=== PATIENT | female | born 1990 | race Caucasian/White ===

== ENCOUNTER → 2016-11-29 | Outpatient (CLI) | payer BC | END | disposition home or self-care (01) | LOC: C.PAPS 11:58 | PROVIDERS: ATTEND Obstetrics & Gynecology | DX: Z01.419 Encounter for gynecological examination (general) (routine) without abnormal findings (principal) ==

== ENCOUNTER → 2017-01-01 | Outpatient (CLI) | payer BC ==
--- NOTE | 2017-01-02 07:43 | PAP/PSG TECHNICIAN REPORT ---
[facility] Senior [employer] Consultant Polysomnogram Report Study name: None Report date: 01/02/2017 Study date: 01/01/2017 Referring Physician: Salbador Schwartz M.D. Name: SHAVONNE NEVAREZ Interpreting Physician: Conrad Myers M.D. Date of : 1990 Senior [employer] Consultant: Coco Ruelas, PSGT. Sex: Female Age: 26 StudyType: PSG Weight: 133 lbs Height: 26 years, Height 5' 4" BMI: 22.83 Medications: Sprintec 28, Sumatriptan 100mg, Trokendi xr 100 mg, Minocycline Hci 50 mg, Singulair , Valacyclovir Hci 500 mg. Patient History 26 yr. old female presents tonight for a sleep study followed by a MSLT. Pt. has daytime sleepiness. Parameters Monitored NPSG: E1-M2, E2-M1, Fp1-M2, Fp2-M1, F3-M2, F4-M2, F4-M1, C3-M2, C4-M2, C4-M1, O1-M2, O2-M2, O2-M1, T3-M2, T4-M1, P3-M2, P4-M1, CHIN1, CHIN2, HR, EKG, Legs, PFLOW, SNOR, FLOW, CFLOW, Tidal Volume, THOR, ABDO, SpO2, PLTH, CPRESS, ETCO2 Wave, ETCO2, pH Sleep Architecture Sleep Stages Time at Lights Off 9:25:23 PM STAGES Time (min.) TST (%) Time at Lights On 5:27:53 AM Wake 15.0 -- Total Recording Time (TRT) 483.50 min. N1 2.5 1 Total Sleep Period (TSP) 468.5 min. N2 262.5 56 Total Sleep Time (TST) 467.5min. N3 71.5 15 Awake Time 15.0 min. REM 131.0 28 Wake after Sleep Onset 1.0 min. Sleep Efficiency (SE) 97 % Sleep Onset Latency (NELDA) 14.0 min. Number of Stage 1 Shifts None Awakenings 2 Stage Changes 28 Number of REM periods 5 REM 131.0 28 REM Latency 73.0 min. NREM 336.5 72 Body Position Analysis Supine Right Left Side Prone Vertical Total Sleep Time (min.) 459.9 22.4 0.0 22.39 0.0 0.2 Total Sleep Time (%) 95% 5% 0% 5 0% N/A% Total Sleep Time REM (min.) 131.0 0.0 0.0 None 0.0 0.0 Total Sleep Time NREM (min.) 314.1 22.4 0.0 None 0.0 0.0 Intermittent Wake (min.) 14.8 0.0 0.0 None 0.0 0.2 Total Sleep Period (%) 95% None None None None None Arousals Myoclonus (PLM) * Events Count Index Events Count Index Spontaneous 28 4 Events Awake (PLMW) 0 0.0 Respiratory 0 0.0 Events Asleep w/ Arousal (PLMA) 2 0.3 PLM 2 0 Events Asleep w/o Arousal (PLMS) 70 9.0 Snoring 7 1 Total Asleep 72 9.2 Total 37 5 Total 72 9 Respiratory Analysis * CA OA MA CH H RERA Total Count 0 0 0 0 1 0 1 Index 0.0 0.0 0.0 0 0.1 0 0.1 Mean Duration 0.0 0.0 0.0 0.00 10.3 0.0 10.3 Longest Duration 0.0 0.0 0.0 0.00 0.0 0.0 10.3 Respiratory Event Summary Total Supine ~Supine Right Left Prone REM NREM Apneas Count 0 0 0 0 N/A N/A 0 0 Index 0.0 0 0 0.0 N/A N/A 0 0 Hypopneas (4% Desat) Count 1 1 0 0 N/A N/A 0 1 Index 0.1 0.1 0 0.0 N/A N/A 0.0 0.2 Apneas & All Hypopneas Count 1 1 0 0 N/A N/A 0 1 Index 0.1 0 0 0 N/A N/A 0.0 0.2 Respiratory Events (Signal Manager+All Hyp+RERA) Count 1 1 0 0 N/A N/A 0 1 Index 0.1 0 0 0.0 N/A N/A 0.0 0.2 Respiratory Related Arousal Count 0 1 0 0 N/A N/A 0 0 Index 0.0 0 0 0 N/A N/A 0 0 Snoring Analysis Supine Right Left Prone REM NREM Total Snore duration 2.0 min Snores count 43 3 N/A N/A 12 34 46 Snore mean duration 2.7 Sec Snores index 6 8 N/A N/A 5.5 6.1 5.9 TST with snoring (%) 0.4% Desaturation Event Summary: Minimum %SpO2 Event Count Mean/Min/Max Duration(sec.) Desaturation Index % Time In Bed > 90 11 28.0 / 8.8 / 57.5 1.4 97.9 86 - 90 8 27.1 / 7.8 / 57.5 51.4 1.9 81 - 85 0 N/A 0.0 0.1 76 - 80 0 N/A 0.0 0.1 71 - 75 0 N/A 0.0 0.0 66 - 70 0 N/A 0.0 0.0 61 - 65 0 N/A 0.0 0.0 56 - 60 0 N/A 0.0 0.0 51 - 55 0 N/A 0.0 0.0 < 50 0 N/A 0.0 0.0 Total REM NREM Awake <50% 0.0 min. 0.0 min. 0.0 min. 0.0 min. 51 - 60% 0.0 min. 0.0 min. 0.0 min. 0.0 min. 61 - 70% 0.0 min. 0.0 min. 0.0 min. 0.0 min. 71 - 80% 0.3 min. 0.0 min. 0.3 min. 0.0 min. 81 - 90% 9.8 min. 0.0 min. 9.8 min. 0.0 min. 91 - 100% 471.8 min. 131.0 min. 326.4 min. 14.4 min. Average 95 95 95 96 Minimum SpO2 79 93 79 94 Desaturation Event Index 1.7 0.0 2.5 0.0 # Desat. Events below 89% 9 N/A 9 N/A Time(%) with Saturation below 89% 0.8 0.0 0.8 0.0 Time(min.) with Saturation below 89% 3.9 0.0 3.9 0.0 Time (mins) REM (mins) NREM (mins) % of TST SpO2 Below 90% 11 N/A N11 1.4 SpO2 Below 88% 4 0 0 1 Heart Rate Analysis Min (bpm) Max (bpm) Average (bpm) Awake 58 90 69 NREM 45 109 57 REM 48 91 62 Overall 45 109 58 Supplemental O2 Values Minimum O2 level: None Value Start Time End Time Senior [employer] Consultant Comments PSG Study slept in the right, left, and supine positions. No cardiac arrhythmia or PLM's noted. No bruxism noted. Snoring was noted and scored as a 1 on a scale of 1 through 5. (0=no snoring, 5=snoring loud enough to be heard through a closed door or down the chanel way) Ms. Nevarez awoke to use the restroom zero times during the night. Ms. Nevarez stated, I did sleep as well as I do when I am in my own bed. The final report will be interpreted and signed by a sleep physician. The completed physician report will then be placed in the patient medical record. Pt. did sleep well, she did toss from one side to another often. No respiratory events were seen throughout the night. Pt. will stay for a MSLT 01/02/17, Pt. did state that she will only be able to do 4 naps for she has a procedure scheduled with [facility] at 3 :20 pm. Therapy (cm H2O) 0 TIB (min.) 482.5 TST (min.) 467.5 Sleep Onset (min.) 14.0 REM Onset From Sleep (min.) 73.0 Sleep Efficiency % 97 Wakefulness (%) 3 Wakefulness (min.) 15.0 NREM 1 (%) 1 NREM 1 (min.) 2.5 NREM 2 (%) 56 NREM 2 (min.) 262.5 NREM 3 (%) 15 NREM 3 (min.) 71.5 REM (%) 28 REM (min.) 131.0 # Arousals 37 Arousal Index 5 # Snore 46 Snore Index 5.9 AHI 0.1 AHI Supine 0 AHI Non-Supine 0 NREM AHI 0.2 REM AHI 0.0 RDI 0.1 # Obstructive Apnea 0 # Central Apnea 0 # Mixed Apnea 0 # Hypopneas 1 RERAs 0 Total Respiratory Events 1 Time Below SpO2 89% (min.) 3.9 Mean NREM SpO2 (%) 95 Mean REM SpO2 (%) 95 Mean Sleep SpO2 (%) 95 Min NREM SpO2 (%) 79 Min REM SpO2 (%) 93 Position Supine (min.) 459.9 Position Non-supine (min.) 22.4 LM Index Sleep 9.2 LM Index NREM 9.8 LM Index REM 7.8 Mean Heart Rate (bpm) 58 Min Heart Rate (bpm) 45
[2017-01-02 11:55] LABS: BENZODIAZEPINE, URINE NEG (NEG); COCAINE,URINE NEG (NEG); PHENCYCLIDINE, URINE NEG (NEG)
--- NOTE | 2017-01-02 14:11 | POLYSOMNOGRAPH REPORT ---
[facility] MSLT REPORT Study Date: 01/02/2017 Report Date: 01/02/2017 Name: SHAVONNE NEVAREZ Subject Code: Medicare: [facility] #: [id number] Sex: Female Referring Physician: Salbador Schwartz M.D. Age: 26 Interpreting Physician: Conrad Myers M.D. Weight: 133 lbs Fixed Assets Accountant: Aliza Sebastian [facility]. : 1990 Study Indications: BMI: 22.83 Medications: Sprintec 28, Sumatriptan Succinate 100mg, Trokendi XR 100mg, Flonase Allergy, Minocycline HCL 50mg, Singulair, Valacyclovir HCL 500mg Height: 5' 4" Medicare Date: Patient History Patient has migraine headaches and significant daytime sleepiness. Patient had a sleep study last night and is here today for an MSLT. She is only able to stay for 4 of the naps due to having a procedure scheduled for 3:40pm, that she cannot miss. She was told this may compromise results and that test may need to be repeated. She acknowledged understanding, but still wanted to proceed with testing. She was told all of this last night prior to sleep study. Nap 1 Nap 2 Nap 3 Nap 4 Nap 5 Mean Values Start Time: 7:30:55 AM 9:30:55 AM 11:30:25 AM 1:30:55 PM N/A - End Time: 7:47:55 AM 9:46:55 AM 11:47:55 AM 1:47:25 PM N/A - Time in Bed (min): 17.00 16.00 17.50 16.50 0.00 16.75 Total Sleep Time (min): 15.00 11.00 15.00 12.00 0.00 13.25 Sleep Latency* (min): 2.00 1.00 2.50 1.50 NONE 1.75 REM Latency (min): NONE NONE NONE NONE NONE 20.00 *Note: This report will display a default sleep latency of 20 minutes if the patient fails to sleep during a nap. Recording Fixed Assets Accountant Comments: Patient was unable to stay for 4th nap, she understood that this may cause test to be considered incomplete. Sleep was obtained during all 4 naps. Patient always answered question that she was wide awake prior to each nap. And she did not seem to struggle to stay awake at all in between naps. She fell asleep very quickly during every nap. One stray PVC was noted. No REM was obtained.
--- NOTE | 2017-01-07 16:29 | POLYSOMNOGRAPH REPORT ---
CLINICAL DATA: A 26-year-old female with BMI of 22.[address] Schwartz for evaluation of excessive sleepiness/hypersomnia and possible narcolepsy. On the evening of 01/02/2017, a nocturnal polysomnogram was performed. SLEEP ARCHITECTURE: Total sleep period was 468.5 minutes. Total sleep time was 467.5 minutes divided between 336.5 minutes of non-REM sleep and 131 minutes of REM sleep. Sleep onset latency was 14 minutes. REM latency was 73 minutes. Sleep efficiency was 97%. Awake after sleep onset was 1 minute. Sleep consisted of stage N1 1%, N2 56%, N3 15%, and REM 28%. AROUSAL DATA: Thirty-seven arousals were recorded for an index of 5 per hour. Twenty-eight were due to spontaneous arousals. PLM DATA: No evidence of significant PLMD was seen. There were 72 limb movements during sleep noted for an index of 9.2 per hour with arousal index of 0.3 per hour. RESPIRATORY DATA: There was no evidence of clinically significant sleep apnea/hypopnea noted. AHI was 0.1. There was 1 hypopneic episode, 10.3 seconds in duration. OXIMETRY DATA: No significant hypoxemia was seen. Oxygen isabelle was 79%. Mean saturation was 95%. Time below 88% was 4 minutes. EKG: Heart rates ranged from 45 to 109 beats per minute. No arrhythmias were noted. POWER TRANSFORMER REPAIRER'S COMMENTS: The patient slept in the right, left, and supine positions. Snoring was mild, rated 1 on a scale of 1-5. She slept well, but did toss and turn and move from one side to the other throughout the night. She was scheduled for a multiple sleep latency test the following day. IMPRESSION: No evidence of clinically significant sleep apnea/hypopnea, nocturnal hypoxemia or abnormal limb movements during sleep to explain this patient's symptoms. She did achieve over 7 hours of sleep. RECOMMENDATIONS: The patient will have a multiple sleep latency test performed the following day. [facility]
--- NOTE | 2017-01-07 16:56 | MULTIPLE SLEEP LATENCY TEST ---
CLINICAL DATA: A 26-year-old male with a BMI of 22.[address] Schwartz for evaluation of possible narcolepsy. The patient has excessive daytime sleepiness and hypersomnia. She does have migraine headaches. She did have a sleep study done the evening prior to the multiple sleep latency test which showed 7+ hours of sleep achieved without any significant sleep apnea/hypopnea, nocturnal hypoxemia or leg movement events during sleep. On 01/02/2017 a multiple sleep latency test was performed per the [employer] Protocol. The patient was only able to stay for 4 naps because of a scheduled appointment at 3:40 PM. FINDINGS: Significant foreshortening of sleep latency was seen without sleep onset REM periods. Mean time in bed was 16.75 minutes. Mean total sleep time was 15.25 minutes. Her mean sleep latency was markedly foreshortened at 1.75 minutes. REM was not achieved in any of the 4 naps. For nap #1, time in bed was 17 minutes. Total sleep time was 15 minutes. Sleep latency was 2 minutes. REM was not achieved. For nap #2, time in bed was 16 minutes. Total sleep time was 11 minutes. Sleep latency was 1 minute. REM was not achieved. For nap #3, time in bed was 17.5 minutes. Total sleep time was 15 minutes. Sleep latency was 2.5 minutes. REM was not achieved. For nap #3, time in bed was 16.5 minutes. Total sleep time was 12 minutes. Sleep latency was 1.5 minutes. REM was not achieved. TAX SERVICES INTERN'S COMMENTS: The patient did not struggle to stay awake between naps. She fell asleep very quickly during each nap. IMPRESSION: Markedly abnormal mean sleep latency test with severely foreshortened sleep latency suggesting severe hypersomnia/sleepiness. However, REM was not achieved during any of her naps. Because of this, a definite diagnosis of narcolepsy cannot be made. However, the findings are very suggestive of narcolepsy or severe hypersomnia. RECOMMENDATIONS: The patient should be considered for use of stimulant medication. Clinical correlation is needed. MTDD
== END | disposition home or self-care (01) ==
LOC: C.NEUR 20:00
PROVIDERS: ATTEND Psychiatry & Neurology Neurology
DX: G47.19 Other hypersomnia (principal)

== ENCOUNTER → 2017-01-02 | Outpatient (CLI) | payer BC | END | disposition home or self-care (01) | LOC: C.LAB1850 16:22 | PROVIDERS: ATTEND Obstetrics & Gynecology | DX: N91.5 Oligomenorrhea, unspecified (principal) ==

== ENCOUNTER → 2017-01-02 | Outpatient (CLI) | payer BC | END | disposition home or self-care (01) | LOC: C.PATHSPEC 17:32 | PROVIDERS: ATTEND Obstetrics & Gynecology | DX: D06.9 Carcinoma in situ of cervix, unspecified (principal) ==

== ENCOUNTER → 2017-03-25 | Outpatient (CLI) | payer BC, OTHER ==
[2017-03-25 17:57] LABS: HEPATITIS B AB POS
== END | disposition home or self-care (01) ==
LOC: C.LAB1850 16:12
PROVIDERS: ATTEND Preventive Medicine Occupational Medicine
DX: Z77.21 Contact with and (suspected) exposure to potentially hazardous body fluids (principal)

== ENCOUNTER → 2017-07-23 | Outpatient (CLI) | payer BC | END | disposition home or self-care (01) | LOC: C.PAPS 10:30 | PROVIDERS: ATTEND Obstetrics & Gynecology | DX: R87.612 Low grade squamous intraepithelial lesion on cytologic smear of cervix (LGSIL) (principal) ==

== ENCOUNTER → 2017-07-23 | Outpatient (CLI) | payer BC | END | disposition home or self-care (01) | LOC: C.PATHSPEC 17:41 | PROVIDERS: ATTEND Obstetrics & Gynecology | DX: R87.612 Low grade squamous intraepithelial lesion on cytologic smear of cervix (LGSIL) (principal) ==

== ENCOUNTER → 2017-10-15 | Outpatient (CLI) | payer BC | END | disposition home or self-care (01) | LOC: C.LABSPEC 17:25 | PROVIDERS: ATTEND Obstetrics & Gynecology | DX: Z34.01 Encounter for supervision of normal first pregnancy, first trimester (principal) ==

== ENCOUNTER → 2017-10-17 | Outpatient (CLI) | payer BC ==
[2017-10-17 14:40] LABS: BASO % 0.5 %; BASO ABS # 0.03 K/uL (0-0.2); EOS % 1.6 %; HEMATOCRIT 35.6 % (37-47); HEMOGLOBIN 12.4 g/dL (12.0-16.0); IG# 0.01 K/uL (0.00-0.02); LYMPH % 31.5 %; LYMPH ABS # 2.03 K/uL (1.2-3.4); MEAN CELL VOLUME 91.3 fL (80-100); MEAN CORPUSCULAR HEMOGLOBIN 31.8 pg (25-34); MEAN CORPUSCULAR HGB CONC 34.8 g/dl (32-36); MEAN PLATELET VOLUME 10.4 fL (7.4-10.4); MONO % 5.1 %; MONO ABS # 0.33 K/uL (0.11-0.59); NEUT % 61.1 %; NEUT ABS # 3.95 K/uL (1.4-6.5); PLATELET COUNT 206 K/uL (130-400); RED CELL DISTRIBUTION WIDTH CV 12.9 % (11.5-14.5); WHITE BLOOD COUNT 6.45 K/uL (4.8-10.8)
== END | disposition home or self-care (01) ==
LOC: C.LAB1850 12:48
PROVIDERS: ATTEND Obstetrics & Gynecology
DX: Z34.01 Encounter for supervision of normal first pregnancy, first trimester (principal)

== ENCOUNTER → 2017-11-13 | Outpatient (CLI) | payer BC ==
[~2017-11-13] MED LIST: MODA100T17 PO
== END | disposition home or self-care (01) ==
LOC: C.LAB1850 16:53
PROVIDERS: ATTEND Obstetrics & Gynecology
DX: Z29.13 Encounter for prophylactic Rho(D) immune globulin (principal)

== ENCOUNTER → 2017-11-14 | Day surgery (SDC) | payer BC ==
[2017-11-13 13:27] VITALS: BMI 23.0
[~2017-11-14] VITALS: Ht 162.6 cm; Wt 61.8 kg
[~2017-11-14] MED LIST changes: +ATROPINE SULFATE 0.1 MG/ML 5ML SYR IV PRN; +DEXAMETHASONE SOD INJ 4 MG/ML VIAL ONE; +DOXYCYCLINE HYCLATE 100 MG CAP PO SCH; +EpHEDrine SULFATE INJ 50 MG/ML AMP IV PRN; +FENTANYL CITRATE INJ 50 MCG/1 ML 2 ML VIAL IV PRN; +FENTANYL CITRATE INJ 50 MCG/1 ML 2 ML VIAL ONE; +FLUMAZENIL 0.1 MG/1 ML 10 ML VIAL IV PRN; +GLYCOPYRROLATE INJ 0.2 MG/ML VIAL ONE; +IBUPROFEN 600 MG TAB PO PRN; +KETOROLAC TROMETHAMINE 30 MG/ML VIAL IV. PRN; +LACTATED RINGER'S 1000ML 1,000 ML IV SCH; +LIDOCAINE HCL 2% 2 ML VIAL (20MG/ML) ONE; +MIDAZOLAM HCL 1 MG/ML 2ML VIAL ONE; +NALOXONE HCL 0.4 MG/1 ML VIAL/CARP IV PRN; +ONDANSETRON INJ 2 MG/ML 2 ML VIAL IV PRN; +ONDANSETRON INJ 2 MG/ML 2 ML VIAL ONE; +OXYCODONE/ACETAMINOPHEN 5-325 TAB PO PRN; +PROMETHAZINE HCL INJ 12.5 MG in SODIUM CHLORIDE 0.9% 50ML 50 ML IV PRN; +PROMETHAZINE HCL INJ 25 MG in SODIUM CHLORIDE 0.9% 50ML 50 ML IV PRN; +PROPOFOL IV EMULSION 10 MG/ML 20 ML VIAL IV ONE; +SODIUM CHLORIDE 0.9% 1000ML 1,000 ML IV SCH
[2017-11-14 08:39] VITALS: BP 152/68; PULSE 60; TEMP 37.2; O2SAT 98; Ht 162.6 cm; Wt 61.8 kg
--- NOTE | 2017-11-14 10:42 | History & Physical Bridge Note ---
H&P Re-Evaluation Bridge Note: I have examined the patient, reviewed the History & Physical and in the interval since the performance of the History & Physical I have noted the following changes of clinical significance: No changes noted
--- NOTE | 2017-11-14 10:44 | Discharge Instructions ---
Discharge Instructions Date of Service Nov 14, 2017. Visit Reason for Visit: Missed Discharge Discharge Diagnosis / Problem: Missed Discharge Goals Goal(s): Specific goals Activity Recommendations Activity Limitations: per Instructions/Follow-up section Anesthesia . Post Anesthesia Instructions: If you have had General Anesthesia or IV Sedation: * Do not drive today. * Resume driving when surgeon permits. * Do not make important decisions or sign legal documents today. * Call surgeon for: 1. Temperature elevations greater than 101 degrees F. 2. Uncontrollable pain. 3. Excessive bleeding. 4. Persistent nausea and vomiting. 5. Medication intolerance (nausea, vomiting or rash). * For nausea and vomiting use only clear liquids such as: tea, soda, bouillon until nausea subsides, then gradually increase diet as tolerated. * If you have any concerns or questions, call your surgeon's office. If physician is unavailable and it is an emergency, call 911 or go to the nearest emergency room. . Instructions / Follow-Up Instructions / Follow-Up ACTIVITY RECOMMENDATIONS: * Avoid tampons, douching, hot tubs, pools, and intercourse until bleeding has stopped. * May shower as usual. * No strenuous activity for 24-48 hours. After 24-48 hours, you may do anything you feel like doing (driving and sports are okay). SPECIAL CARE INSTRUCTIONS: Special Diet: * Mild nausea may occur in the immediate post-operative period. * Take clear liquids such as tea, cola or bouillon until all nausea has subsided; you may then resume your normal diet. Special Care: * Light bleeding and vaginal spotting can last from a few days to 3-4 weeks. Call your doctor if bleeding becomes heavier than the heaviest part of your period. * Check your temperature twice a day for one week. If it goes above 100.4 degrees Fahrenheit (38.0 Celsius), notify your doctor. * Call your doctor's office for an appointment for 6 weeks after your surgery. FOLLOW-UP VISIT: Call your doctor's office for an appointment for 6 weeks after your surgery. Diet Recommendations Recommended Home Diet: no limitations Pending Studies Studies pending at discharge: no Medical Emergencies . Who to Call and When: Medical Emergencies: If at any time you feel your situation is an emergency, please call 911 immediately. . Non-Emergent Contact Non-Emergency issues call your: Primary Care Provider . . "Provider Documentation" section prepared by Belinda Vega. .
--- NOTE | 2017-11-14 11:31 | [facility] Post Operative Brief Note ---
Immediate Operative Summary Operative Date Nov 14, 2017. Pre-Operative Diagnosis Missed Post-Operative Diagnosis same Procedure(s) Performed Dilation and Evacuation Surgeon Dr. Belinda Vega Precipitate Washer Surgeon(s) none Estimated Blood Loss 100mL Findings Consistent with Post-Op Diagnosis Specimens A. Products of Conception Drains None Anesthesia Type General Complication(s) none Disposition Accompanied Pt To Recover: no Disposition: Recovery Room / PACU
--- NOTE | 2017-11-14 11:34 | [facility] Operative Report ---
Operative Report Operative Date Nov 14, 2017. Pre-Operative Diagnosis Missed Post-Operative Diagnosis same Procedure(s) Performed Dilation and Evacuation Surgeon Dr. Belinda Vega Threader Surgeon(s) none Estimated Blood Loss 100mL Specimens A. Products of Conception Drains None Anesthesia Type General Complication(s) none Disposition no Recovery Room / PACU Description of Procedure Alejandra was placed on the table in the dorsal lithotomy position with candycane stirrups prepped and draped in standard sterile fashion and a hard timeout was taken prior to proceeding. The bladder was emptied of urine via straight catheterization for 100 cc of clear yellow. Weighted and [place] speculum were introduced to the vagina and the anterior lip of the cervix was grasped with a single toothed tenaculum. Cervix was then serially dilated to a 25 Citizen Of [place]. 8 mm curved rigid curette was then introduced gently to the fundus. The hose was then connected and suction was activated. When suction reach the green zone, a rotational and withdrawing method was used to make several passes with suction retrieving material consistent with products of conception. A brief sharp curettage was then carried out revealing good cry on all 4 lakhani. 1 Additional Pass was made with the suction curette to retrieve any loose clot or debris. Bimanual massage was then performed revealing the uterus had contracted to somewhere between 6-8 cm, and there was no vaginal bleeding at all. All instruments were removed and the patient was transferred in stable condition to the recovery room I attest to the content of the Intraoperative Record and any orders documented therein. Any exceptions are noted below.
--- NOTE | 2017-11-14 12:15 | Anesthesiology Progress Note ---
Anesthesia Post Op Note Date & Time Nov 14, 2017 at 12:15 Vital Signs Pain Intensity: 0 Vital Signs Past 12 Hours Date Time Temp Pulse Resp B/P (MAP) Pulse Ox O2 Delivery O2 Flow Rate FiO2 11/14/17 12:05 74 17 110/66 100 Oxymask 10 11/14/17 11:55 77 21 120/71 100 Oxymask 10 11/14/17 11:45 36.0 47 13 100/54 100 Oxymask 10 11/14/17 08:39 37.2 60 16 152/68 (96) 98 Room Air Notes Mental Status: alert / awake / arousable, participated in evaluation Pt Amnestic to Procedure: Yes Nausea / Vomiting: adequately controlled Pain: adequately controlled Airway Patency, RR, SpO2: stable & adequate BP & HR: stable & adequate Hydration State: stable & adequate Anesthetic Complications: no major complications apparent
[2017-11-14 12:28] VITALS: BP 112/62; PULSE 66; TEMP 37; O2SAT 100
== END | disposition home or self-care (01) ==
LOC: C.ACU 08:17
PROVIDERS: ATTEND Obstetrics & Gynecology
DX: O02.1 Missed abortion (principal); J45.909 Unspecified asthma, uncomplicated; G47.419 Narcolepsy without cataplexy; Z87.891 Personal history of nicotine dependence; Z83.3 Family history of diabetes mellitus; Z80.3 Family history of malignant neoplasm of breast

== ENCOUNTER 2019-02-25 03:08 | Inpatient (IN) ==
--- NOTE | 2019-02-25 03:25 | History & Physical Report ---
Date of Service February 25, 2019 Assessment & Plan (1) 38 weeks gestation of : PROM at 1am. Will admit to L&D, start IV, labs, EFM/toco. Patient wishes to see if contractions excelsior picker with walking the halls. She is agreeable to start pitocin to augment if no labor by 6h after PROM. Is planning for no epidural at this time, but is open to the idea if pain becomes unbearable. History of Present Illness Chief Complaint: Leaking fluid - r/o ROM Primary Care Provider: Kvng Mason MD 28yo @ 38 10/15 presents with complaint of losing mucus plug and vaginal discharge of clear fluid - is not sure if she has had rupture of membranes. No vaginal bleeding. Contractions about every 10 minutes. + movement. complicated by h/o LEEP 2010 with LSIL pap. Migraines. History of miscarriage. Asthma. Smoker, does not want spouse to know. Allergies Allergy/AdvReac Type Severity Reaction Status Date / Time No Known Allergies Allergy Unknown Unverified 11/14/17 08:37 Home Medications Home Medications Medication Instructions Recorded Confirmed Type Modafinil (Provigil) 100 mg PO afternoon #0 tab 11/13/17 History Review of Systems All systems reviewed & are unremarkable except as noted in HPI & below Physical Exam Physical Exam: Gen: AAOx3 NAD CV: RRR L: CTAB Abd: soft, gravid, NTTP Ext: no edema Sterile spec exam: +pooling, visible hair, +nitrizine SVE: 2-3/100/-1 FHT Cat 1 [place] irregular
[2019-02-25] MEDS ORDERED: OXYTOCIN 30 UNITS/500 ML BAG IV PRN ×3 (03:36→12:01)
[2019-02-25] MEDS ORDERED: ONDANSETRON INJ 2 MG/ML 2 ML VIAL IV PRN ×2 (03:48→05:31)
[2019-02-25] MEDS ORDERED: ONDANSETRON INJ 2 MG/ML 2 ML VIAL ONE (03:52)
[2019-02-25 04:03] LABS: Hematocrit (blood only) 36.2 % (37-47); Hemoglobin 12.2 g/dL (12.0-16.0); Mean Corpuscular Volume 90.5 fL (80-100); Mean Platelet Volume 10.1 fL (7.4-10.4); Platelet Count 169 K/uL (130-400); RDW Coefficient of Variation 13.6 % (11.5-14.5); White Blood Count 12.12 K/uL (4.8-10.8)
[2019-02-25 04:17] LABS: Mean Corpuscular Hgb Conc 33.7 g/dL (32-36)
[2019-02-25] MEDS ORDERED: BUPIVACAINE 0.25% 30 ML VIAL ONE (05:09)
[2019-02-25] MEDS ORDERED: ePHEDrine sulfate 50 MG/ML AMP ONE (05:09)
[2019-02-25] MEDS ORDERED: fentaNYL 2MCG/ML ROPIV 1.25MG/ML 100 ML BAG EPI ONE (05:09)
[2019-02-25] MEDS ORDERED: fentaNYL citrate 100 MCG/2 ML VIAL ONE (05:09)
[2019-02-25] MEDS: LACTATED RINGER'S 1,000 ML IV PRN ×2 (05:14→06:14)
[2019-02-25] MEDS ORDERED: NALBUPHINE HCL INJ 10 MG/ML AMP IV PRN (05:31)
[2019-02-25] MEDS ORDERED: ePHEDrine sulfate 50 MG/ML AMP IV PRN (05:31)
[2019-02-25] MEDS ORDERED: NALOXONE HCL 1 MG in SODIUM CHLORIDE 0.9% 1000ML 1,000 ML IV PRN (05:31)
[2019-02-25] MEDS ORDERED: NALOXONE HCL 0.4 MG/1 ML VIAL/CARP IV PRN (05:31)
[2019-02-25] MEDS ORDERED: DiphenhydrAMINE HCL 50 MG/ML VIAL IV PRN (05:31)
[2019-02-25] MEDS ORDERED: fentaNYL 2MCG/ML ROPIV 1.25MG/ML 100 ML BAG EPI PRN (05:31)
--- NOTE | 2019-02-25 05:37 | Anesthesiology Consultation ---
Date of Service February 25, 2019 Assessment & Plan Chart Review Chart Review: Patient NOT seen in Pre Admission Testing and Acceptable Risk for Labor Epidural Consults Requested none ASA ASA2 Proposed Anesthesia Anesthesia Type: Labor Epidural and CSE Risk / Benefits Reviewed With: PT / POA / Parent / Guardian, Accepts Plan and Informed Consent Obtained History Height/Weight Height: 5 ft 5 in Weight: 88.451 kg Allergies Allergy/AdvReac Type Severity Reaction Status Date / Time No Known Allergies Allergy Unknown Unverified 11/14/17 08:37 Medications Home Medications Medication Instructions Recorded Confirmed Last Taken PNV cmb#95-ferrous fumarate-FA 1 tab PO DAILY 02/25/19 02/25/19 02/25/19 [] ferrous sulfate [iron] 325 mg PO DAILY 02/25/19 02/25/19 02/25/19 ranitidine HCl [Zantac] 150 mg PO DAILY 02/25/19 02/25/19 02/25/19 Active Medications Generic Name Dose Route Start Last Admin Trade Name Freq PRN Reason Stop Dose Admin Lactated Ringer's 1,000 mls @ 125 mls/hr 02/25/19 03:36 02/25/19 05:14 Lr IV 02/27/19 03:35 999 mls/hr .Q8H PRN Administration L&D Protocol Protocol NPO Date Last Intake of Fluids: 02/25/19 Time Last Intake of Fluids: 04:30 Date Last Intake of Solids: 02/24/19 Time Last Intake of Solids: 18:30 Past Medical History Medical History Anemia History of migraine [place] teeth removed Exercise / Class Metabolic Activity II 4-5 Yardwork/Stairs/Walk up hill Past Surgical History Surgical History H/O LEEP H/O dilation and curettage Past Anesthesia History No Hx of Anesthesia Complications and No Family Hx of Anesthesia Complications History of PONV No Hx of PONV and No Hx of Motion Sickness Social History Smoking Status: Former smoker Hx Alcohol Use: No Hx Substance Use: No Review of Systems no chest pain or sob Physical Exam Vital Signs Last Vital Signs Temp 36.7 C 02/25/19 03:37 Pulse 82 02/25/19 05:34 Resp 18 02/25/19 03:37 BP 120/79 02/25/19 03:37 Pulse Ox 96 02/25/19 05:34 ENMT Mouth: no TMJ abnormality Thyromental Distance: > or= 3.5 Finger Breadths Mallampati Class: II Neck normal visual inspection Respiratory normal respiratory effort Auscultation: lungs clear to auscultation bilaterally Cardiovascular Rate/Rhythm: regular rate and regular rhythm Musculoskeletal Spine: normal cervical ROM Neurologic moves all extremities Psychiatric Orientation: alert and oriented x 3 Testing Laboratory Results 02/25/19 03:54
--- NOTE | 2019-02-25 07:23 | Obstetrical Progress Note ---
Date of Service February 25, 2019 Subjective Comfortable with epidural. FHT Cat 1 [place] rare SVE 4-5/100/0 Patient amenable to starting pitocin. Results & Data Vital Signs (Past 12 Hours) Vital Signs Temp Pulse Resp BP Pulse Ox 02/25/19 07:19 76 100 02/25/19 07:14 54 L 98 02/25/19 07:09 55 L 99 02/25/19 07:06 57 L 102/57 L 02/25/19 07:04 57 L 98 02/25/19 07:00 36.5 C 18 02/25/19 06:59 53 L 98 02/25/19 06:54 52 L 100 02/25/19 06:51 56 L 111/60 02/25/19 06:49 52 L 99 02/25/19 06:46 56 L 106/61 02/25/19 06:44 54 L 99 02/25/19 06:41 61 110/62 02/25/19 06:39 56 L 99 02/25/19 06:36 50 L 108/59 L 02/25/19 06:34 52 L 99 02/25/19 06:31 49 L 103/57 L 02/25/19 06:29 53 L 100 02/25/19 06:26 49 L 102/55 L 02/25/19 06:24 52 L 100 02/25/19 06:22 52 L 101/58 L 02/25/19 06:19 54 L 99 02/25/19 06:16 52 L 96/55 L 02/25/19 06:14 60 97 02/25/19 06:11 61 18 105/58 L 02/25/19 06:09 58 L 98 02/25/19 06:06 64 107/57 L 02/25/19 06:04 64 98 02/25/19 05:59 65 106/62 99 02/25/19 05:57 72 110/67 02/25/19 05:55 61 18 111/69 02/25/19 05:54 61 116/73 99 02/25/19 05:52 63 120/74 02/25/19 05:49 70 112/74 100 02/25/19 05:44 59 L 99 02/25/19 05:39 67 100 02/25/19 05:34 82 96 07/18/19 05:29 55 L 100 02/25/19 05:24 71 100 02/25/19 05:19 59 L 99 02/25/19 05:06 36.7 C 02/25/19 03:37 36.7 C 61 18 120/79 02/25/19 03:22 61 120/79
[2019-02-25] MEDS ORDERED: SUPERCREAM 0.870% 15 GM JAR EXT PRN (12:01)
[2019-02-25] MEDS ORDERED: BENZOCAINE 20% AER SPR 82.5 GM CAN EXT PRN (12:01)
[2019-02-25] MEDS ORDERED: ACETAMINOPHEN 325 MG TAB PO PRN (12:01)
[2019-02-25] MEDS ORDERED: DIPHTHERIA/TETANUS/PERTUSSIS 0.5 ML SYR/VIAL IM ONE (12:01)
[2019-02-25] MEDS ORDERED: HYDROCORTISONE ACETATE 25 MG SUPP PR PRN (12:01)
--- NOTE | 2019-02-25 12:25 | Delivery Summary ---
DATE OF OPERATION: 02/25/2019 PROCEDURES: 1. Normal spontaneous vaginal delivery. 2. Left vaginal sidewall laceration with left labial laceration. SURGEON: Rudolph Sandhu MD PREOPERATIVE DIAGNOSES: 1. Single intrauterine at 38 weeks gestational age. 2. Premature rupture of membranes. 3. History of LEEP. POSTOPERATIVE DIAGNOSES: 1. Single intrauterine at 38 weeks gestational age. 2. Premature rupture of membranes. 3. History of LEEP. 4. Status post delivery. ESTIMATED BLOOD LOSS: 300 mL. DRAINS: None. FLUIDS: Continuous lactated ringer. URINE OUTPUT: Not measured. COMPLICATIONS: None. FINDINGS: Viable female with weight pending, Apgars of 7 and 9 at 1 and 5 minutes respectively. INDICATIONS: Alejandra is a 28-year-old G2, P0-0-1-0, admitted at 38 weeks 3 days gestational age with premature rupture of membranes. At presentation, she was found to be 2 cm dilated, 100% effaced, -1 station. The patient was see irregularly and was started on oxytocin per regular protocol. DESCRIPTION OF PROCEDURE: The patient then progressed in labor and received an epidural for anesthesia. The patient progressed to 10 cm dilated, 100% effaced, -3 station, pushed over intact perineum with epidural anesthesia and delivered a viable female , weight and Apgars as noted above. The head of the delivered in LOYD position and rest into to left transverse. No nuchal cord was noted. There was noted to be the posterior arm and hand were delivering ahead of the shoulder and the posterior arm was gently delivered posteriorly. The remainder of the body then followed and delivered and the was delivered to the maternal abdomen. The was noted to be vigorous at periods of time; however, after approximately 40 seconds, a decision was made to clamp and cut the cord and the cord was double clamped and cut. The was then noted to be vigorous and remained on the maternal abdomen for a period of time before being taken to the warmer for evaluation. Cord blood was then obtained. Attention was then turned to delivery of the placenta which was delivered intact, 3-vessel cord, gentle cord traction. On inspection of the perineum, vagina and cervix, there was noted to be a left vaginal sidewall laceration that extended to the left labia. These were repaired with 3-0 Vicryl in continuous stitch for the vaginal laceration in an interrupted stitch for the labial laceration. Needle, sponge and instrument counts were correct at the completion of the case. Both mother and were stable in the immediate post-delivery. I attest to the content of the Intraoperative Record and any orders documented therein. Any exception s are noted below.
--- NOTE | 2019-02-25 13:27 | Anesthesia Procedure Note ---
Date of Service February 25, 2019 Anesthesia Post Epidural Note Vital Signs Vital Signs: Temp Pulse Resp BP Pulse Ox 36.5 C 86 18 125/73 100 02/25/19 12:05 02/25/19 13:22 02/25/19 12:50 02/25/19 13:22 02/25/19 11:29 Pain Intensity Abdomen: Pain Intensity: 0 Notes Mental Status: alert / awake / arousable Nausea / Vomiting: adequately controlled Pain: adequately controlled Airway Patency, RR, SpO2: stable & adequate BP & HR: stable & adequate Hydration State: stable & adequate Neuraxial Anesthesia: was administered and sensory block is resolving Anesthetic Complications: no major complications apparent Epidural: Removed without complications and With tip intact
[2019-02-25] MEDS: DOCUSATE SODIUM 100 MG CAP PO SCH (20:12)
[2019-02-25] MEDS: IBUPROFEN 600 MG TAB PO PRN (23:19)
--- NOTE | 2019-02-26 05:38 | Obstetrical Progress Note ---
Date of Service <Lavell Salcedo MD - Last Filed: 02/26/19 07:11> February 26, 2019 Assessment & Plan <Lavell Salcedo MD - Last Filed: 02/26/19 07:11> Day #:: 1 ([28 y/o s/p vaginal delivery @ 38+3] - Blood Type A+ - Feels well today. Eating well, voiding well, ambulating well. - Pain well controlled. - Routine post care - After discharge will have [address] Sandhu.) Subjective <Lavell Salcedo MD - Last Filed: 02/26/19 07:11> Ambulation: ambulating normally Voiding: no voiding problems Passing Gas:: Yes Diet Tolerance:: regular diet Lochia:: Moderate Feeding Type:: breast feeding Current Pain Level(1-10): 2 Physical Exam <Lavell Salcedo MD - Last Filed: 02/26/19 07:11> OB PE General: Alert, oriented. No acute distress. Cardiac: Regular rate and rhythm, no murmurs/rubs/gallops. Respiratory: Clear to auscultation anterior and posteriorly, no wheezes/rales/rhonchi. No increased work of breathing. Symmetrical chest rise. No respiratory distress. Abdomen: Soft, nontender, nondistended. Bowel sounds present. Uterus: Uterine fundus firm, palpable at the umbilicus. Lower Extremities: No lower extremity edema or swelling. No deep calf pain. Jermaine's negative bilaterally. OB ROS Denies fever, chills, sweats Denies shortness of breath, difficulty breathing, chest pain, palpitations, chest pressure. Denies breast pain. Denies dysuria. Denies headache. Results & Data <Lavell Salcedo MD - Last Filed: 02/26/19 07:11> Vital Signs (Past 12 Hours) Vital Signs Temp Pulse Resp BP Pulse Ox 02/26/19 03:00 36.5 C 54 L 16 102/62 02/25/19 23:20 36.7 C 70 18 108/69 02/25/19 20:15 36.7 C 73 18 103/65 98 <Rudolph Sandhu MD - Last Filed: 03/02/19 15:17> Co-Signing Physician Notes Patient seen and evaluated and agree with the above findings and plan.
[2019-02-26 07:18] LABS: Hematocrit (blood only) 34.9 % (37-47); Hemoglobin 11.5 g/dL (12.0-16.0); Mean Corpuscular Volume 91.1 fL (80-100); Mean Platelet Volume 10.5 fL (7.4-10.4); Platelet Count 185 K/uL (130-400); RDW Coefficient of Variation 13.8 % (11.5-14.5); RDW Standard Deviation 45.9 fL (36.4-46.3); Red Blood Count 3.83 M/uL (4.2-5.4); White Blood Count 14.79 K/uL (4.8-10.8)
[2019-02-26] MEDS: IBUPROFEN 600 MG TAB PO PRN ×2 (09:02→20:22)
[2019-02-26] MEDS: DOCUSATE SODIUM 100 MG CAP PO SCH ×2 (09:02→20:22)
[2019-02-26] MEDS: PRENATAL VITAMIN 1 TAB PO SCH (09:02)
[2019-02-26] MEDS ORDERED: BISACODYL 5 MG TABEC PO SCH (20:00)
--- NOTE | 2019-02-27 05:07 | Obstetrical Progress Note ---
Date of Service <Lavell Salcedo MD - Last Filed: 02/27/19 07:27> February 27, 2019 Assessment & Plan <Lavell Salcedo MD - Last Filed: 02/27/19 07:27> Day #:: 2 ([28 y/o s/p vaginal delivery @ 38+3] - GBS neg., Blood Type A+ - Feels well today. Eating well, voiding well, ambulating well. - Pain well controlled. - Routine post care - After discharge will have [address] Sandhu.) <Katherine Rodriguez MD, FACOG - Last Filed: 02/27/19 08:04> (1) 38 weeks gestation of : Day #:: 2 Subjective <Lavell Salcedo MD - Last Filed: 02/27/19 07:27> Ambulation: ambulating normally Voiding: no voiding problems Passing Gas:: Yes Diet Tolerance:: regular diet Lochia:: Moderate (less than a heavy period) Feeding Type:: breast feeding Current Pain Level(1-10): 1 Physical Exam <Lavell Salcedo MD - Last Filed: 02/27/19 07:27> OB PE General: Alert, oriented. No acute distress. Cardiac: Regular rate and rhythm, no murmurs/rubs/gallops. Respiratory: Clear to auscultation anterior and posteriorly, no wheezes/rales/rhonchi. No increased work of breathing. Symmetrical chest rise. No respiratory distress. Abdomen: Soft, nontender, nondistended. Bowel sounds present. Uterus: Uterine fundus firm, at the umbilicus. Lower Extremities: No lower extremity edema or swelling. No deep calf pain. Jermaine's negative bilaterally. OB ROS Denies fever, chills, sweats Denies shortness of breath, difficulty breathing, chest pain, palpitations, chest pressure. Denies breast pain. Denies dysuria. Denies headache. Results & Data <Lavell Salcedo MD - Last Filed: 02/27/19 07:27> Vital Signs (Past 12 Hours) Vital Signs Temp Pulse Resp BP Pulse Ox 02/26/19 23:25 36.8 C 72 16 112/69 98 02/26/19 20:10 36.9 C 72 16 119/72 98 <Katherine Rodriguez MD, FACOG - Last Filed: 02/27/19 08:04> Co-Signing Physician Notes Resident Physician Supervision Note: I interviewed and examined the patient. Discussed with Dr. Salcedo and agree with findings and plan as documented in the note. Any exceptions or clarifications are listed here: Doing well. Plan d/c Documented By: Katherine Rodriguez MD, FACOG
[2019-02-27] MEDS: IBUPROFEN 600 MG TAB PO PRN ×2 (06:08→12:17)
[2019-02-27 06:49] LABS: Hematocrit (blood only) 33.9 % (37-47); Hemoglobin 11.3 g/dL (12.0-16.0)
[2019-02-27] MEDS: PRENATAL VITAMIN 1 TAB PO SCH (08:32)
[2019-02-27] MEDS: DOCUSATE SODIUM 100 MG CAP PO SCH (08:32)
[2019-02-27] MEDS ORDERED: BISACODYL 10 MG SUPP PR PRN (09:00)
== END 2019-02-27 14:25 | disposition home or self-care (01) | DRG 806 ==
LOC: OPB 03:08 → 4S1 03:12 → 4S2 13:54

== ENCOUNTER 2024-12-05 14:35 | Inpatient (IN) ==
[2024-12-05] MEDS ORDERED: LIDOCAINE 1% LOCAL 20 ML VIAL INFIL PRN (15:35)
[2024-12-05] MEDS ORDERED: LIDOCAINE 2% MPF LOCAL 5 ML VIAL EPI PRN (15:36)
[2024-12-05] MEDS ORDERED: NALBUPHINE HCL INJ 10 MG/ML AMP IV PRN (15:36)
[2024-12-05] MEDS ORDERED: SODIUM CHLORIDE 0.9% PF INJ 10 ML VIAL EPI PRN (15:36)
[2024-12-05] MEDS ORDERED: fentaNYL citrate PF 100 MCG/2 ML VIAL EPI PRN (15:36)
[2024-12-05] MEDS ORDERED: BUPIVACAINE 0.25% PF 30 ML VIAL EPI PRN (15:36)
[2024-12-05] MEDS ORDERED: ePHEDrine sulfate 50 MG/ML AMP IV PRN (15:36)
[2024-12-05] MEDS ORDERED: diphenhydrAMINE 50 MG/ML VIAL IV PRN (15:36)
[2024-12-05] MEDS ORDERED: NALOXONE HCL 1 MG in SODIUM CHLORIDE 0.9% 1,000 ML IV PRN (15:36)
[2024-12-05] MEDS ORDERED: NALOXONE HCL 0.4 MG/1 ML VIAL/CARP IV PRN (15:36)
[2024-12-05] MEDS ORDERED: fentANYL 2 MCG/ML BUPIVacaine 0.125%-NSS 100ML BAG EPI PRN (15:36)
[2024-12-05] MEDS ORDERED: ROPIVACAINE 0.5% PF 5 MG/ML 20 ML VIAL EPI PRN (15:36)
--- NOTE | 2024-12-05 15:37 | History & Physical Report ---
Date of Service December 05, 2024 Assessment & Plan (1) Elderly multigravida: Plan: Admit to L&D. EFM/toco. Labs. IV. She desires epidural. History of Present Illness Chief Complaint: labor Primary Care Provider: Kvng Mason MD 34yo @ 40 0/7, AMA, Rh neg, ovarian cyst - presented to L&D with contractions and clear rupture of membranes at 2pm today. + movement. Allergies Allergy/AdvReac Type Severity Reaction Status Date / Time No Known Allergies Allergy Unknown Verified 12/02/24 12:38 Home Medications Medication Instructions Recorded Confirmed Type valacyclovir 1 gram tablet 2,000 mg PO Q12H PRN per provider 04/09/24 12/05/24 History (Valtrex) aspirin 81 mg tablet,delayed 81 mg PO DAILY 12/05/24 12/05/24 History release ferrous sulfate 325 mg (65 mg 325 mg PO DAILY 12/05/24 12/05/24 History iron) tablet (Iron (ferrous sulfate)) omeprazole 20 mg capsule,delayed 20 mg PO DAILY 12/05/24 12/05/24 History release vits no.124-ferrous fum 1 tab PO DAILY 12/05/24 12/05/24 History 27 mg iron-folic acid 800 mcg tablet ( Vitamin) Patient History Medical History History of HPV infection LGSIL on Pap smear of cervix Common migraine without intractability Narcolepsy History of migraine Surgical History S/P surgical removal of pilonidal cyst S/P ovarian cystectomy History of colposcopy H/O LEEP H/O dilation and curettage [place] teeth removed Family History Mother Depression Anxiety History of thyroid disorder Hypertension Aunt Cancer Breast cancer Father Hypercholesteremia Diabetes Hypertension Aunt Thyroid disease Neoplasm of cervix Grandfather Diabetes Grandmother Kidney stone Unknown Tuberculosis H/O ovarian cystectomy History of hysterectomy Depression Other No pertinent family history Denies family history of Ovarian cancer Prostate cancer Myocardial infarction Colorectal cancer Social History (Updated 04/23/24 @ 15:17 by Little [place]) Smoking Status: Former smoker Second Hand Exposure: No; Do You Dip or Chew Tobacco: No; Hx Alcohol Use: Yes Hx Substance Use: No Preferred Language: [place] Communication Ability: Effective Visual Impairment: No Limitations Lab Nurse Required: No Beliefs That Will Affect Care: None marital status: marital status details: JR Ambriz [phone]) [phone] Current Living Situation: Family Current Living Situation Comment: Lives at home with and daughter. 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 No s/s chorio or abruption. Skin: no rashes, warm and dry Psychiatric: A+Ox3, euthymic affect Results & Data Vital Signs (Past 12 Hours) Vital Signs Temp Pulse Resp BP 12/05/24 15:02 76 120/75 12/05/24 14:54 36.7 C 76 18 120/75 Coding Level of Care Code None Diagnoses Elderly multigravida O09.529
--- NOTE | 2024-12-05 15:37 | Anesthesiology Consultation ---
Date of Service December 05, 2024 Assessment & Plan (1) Encounter for pre-operative examination: Chart Review Chart Review: Patient NOT seen in Pre Admission Testing and Acceptable Risk for Labor Epidural Consults Requested none History Height/Weight Height: 5 ft 4 in Weight: 97.069 kg Allergies Allergy/AdvReac Type Severity Reaction Status Date / Time No Known Allergies Allergy Unknown Verified 12/02/24 12:38 Medications Home Medications Medication Instructions Recorded Confirmed Last Taken valacyclovir 1 gram tablet 2,000 mg PO Q12H PRN per provider 04/09/24 12/05/24 Unknown (Valtrex) aspirin 81 mg tablet,delayed 81 mg PO DAILY 12/05/24 12/05/24 12/04/24 release ferrous sulfate 325 mg (65 mg 325 mg PO DAILY 12/05/24 12/05/24 12/03/24 iron) tablet (Iron (ferrous sulfate)) omeprazole 20 mg capsule,delayed 20 mg PO DAILY 12/05/24 12/05/24 12/04/24 release vits no.124-ferrous fum 1 tab PO DAILY 12/05/24 12/05/24 12/04/24 27 mg iron-folic acid 800 mcg tablet ( Vitamin) Past Medical History Medical History History of HPV infection LGSIL on Pap smear of cervix Common migraine without intractability Narcolepsy History of migraine Past Family History Family History Mother Depression Anxiety History of thyroid disorder Hypertension Aunt Cancer Breast cancer Father Hypercholesteremia Diabetes Hypertension Aunt Thyroid disease Neoplasm of cervix Grandfather Diabetes Grandmother Kidney stone Unknown Tuberculosis H/O ovarian cystectomy History of hysterectomy Depression Other No pertinent family history Denies family history of Ovarian cancer Prostate cancer Myocardial infarction Colorectal cancer Past Surgical History Surgical History S/P surgical removal of pilonidal cyst S/P ovarian cystectomy L side, serous cystadenoma and dermoid History of colposcopy H/O LEEP H/O dilation and curettage [place] teeth removed Social History Smoking Status: Former smoker Do You Dip or Chew Tobacco: No Hx Alcohol Use: Yes alcohol intake frequency: holidays/special occasions only Hx Substance Use: No substance use type: does not use Physical Exam Vital Signs Last Vital Signs Temp 98.1 F 12/05/24 14:54 Pulse 76 12/05/24 15:02 Resp 18 12/05/24 14:54 BP 120/75 12/05/24 15:02
[2024-12-05] MEDS: LACTATED RINGER'S 1,000 ML IV PRN (15:50)
[2024-12-05 16:00] LABS: Hematocrit (blood only) 35.7 % (37.0-47.0); Hemoglobin 11.7 g/dl (12.0-16.0); Mean Corpuscular Hemoglobin 29.4 pg (25.0-34.0); Mean Corpuscular Hgb Conc 32.8 g/dL (32.0-36.0); Mean Corpuscular Volume 89.7 fL (80.0-100.0); Mean Platelet Volume 10.7 fL (9.4-12.4); Platelet Count 179 K/uL (130-400); RDW Coefficient of Variation 13.6 % (11.5-14.5); RDW Standard Deviation 44.5 fL (36.4-46.3); Red Blood Count 3.98 M/uL (4.20-5.40); White Blood Count 9.57 K/ul (4.8-10.8)
[2024-12-05] MEDS: fentANYL 2 MCG/ML BUPIVacaine 0.125%-NSS 100ML BAG ONE (16:27)
[2024-12-05] MEDS: BUPIVACAINE 0.25% PF 30 ML VIAL ONE (16:27)
[2024-12-05] MEDS: fentaNYL citrate PF 100 MCG/2 ML VIAL ONE (16:28)
[2024-12-05] MEDS: LIDOCAINE 2%/EPINEPHRINE 1:200,000 20 ML PF ONE (16:28)
[2024-12-05] MEDS: LIDOCAINE 2%/EPINEPHRINE 1:200,000 20 ML PF EPI STA (16:37)
[2024-12-05] MEDS: ePHEDrine sulfate 50 MG/ML AMP ONE (16:37)
[2024-12-05] MEDS: SODIUM CHLORIDE 0.9% PF INJ 10 ML VIAL EPI STA (16:37)
[2024-12-05] MEDS: BUPIVACAINE 0.25% PF 30 ML VIAL EPI STA (16:37)
[2024-12-05] MEDS: fentaNYL citrate PF 100 MCG/2 ML VIAL EPI STA (16:37)
[2024-12-05] MEDS: SODIUM CHLORIDE 0.9% PF INJ 10 ML VIAL ONE (16:38)
[2024-12-05] MEDS: OXYTOCIN 30 UNITS/NSS 30 UNITS/500 ML BAG IV PRN (17:45)
[2024-12-05] MEDS: OXYTOCIN 10 UNITS/ML 10ML VIAL IM ONE (17:50)
--- NOTE | 2024-12-05 18:04 | Delivery Summary ---
Vaginal Delivery Summary Date of Service December 05, 2024 Vaginal Delivery Summary Vaginal Delivery Summary: Pre-delivery diagnoses: 34yo @ 40 0/7, spontaneous labor, Rh negative, AMA, ovarian cyst Post-delivery diagnoses: same Procedure: spontaneous vaginal delivery Surgeon: Nathalie Odonnell DO Complications: none Findings: Viable female . Apgars: 8/9 . Weight pending, please see nursery records Estimated QBL: 161cc Description of delivery: The patient progressed to complete with epidural anesthesia. She then began to push. She spontaneously vaginally delivered a viable from the cephalic presentation. The head delivered in GERARDO position. The anterior shoulder delivered, followed by the posterior shoulder, followed by the body. Nuchal x 2, too tight to reduce, therefore delivered through. The baby was placed on mother's abdomen and a spontaneous cry was heard. Delayed cord clamping was employed, and the cord was doubly clamped and cut. Cord blood was obtained. The placenta was delivered spontaneously intact with a 3-vessel cord. The uterus and vagina were swept of clots and debris. IV pitocin was attempted - however IV became dislodged during delivery, therefore IM pitocin was given. The uterus became firm with pitocin and massage. The cervix, vagina, and perineum were inspected and a small laceration in left vagina was noted, there was active bleeding from this - therefore it was sutured with 3-0 vicryl [id number] x 2, and this achieved hemostasis. Excellent hemostasis was observed. The mother and baby are recovering in stable and good condition in the room. Sponge, needle and instrument counts were correct x 2. Nathalie Odonnell DO [facility] Vaginal Delivery Charge Vaginal Delivery Codes: 55687 global code for the antepartum, delivery, and post- Delivery Type Details:
[2024-12-05] MEDS ORDERED: OXYTOCIN 30 UNITS/NSS 30 UNITS/500 ML BAG IV PRN (18:12)
[2024-12-05] MEDS ORDERED: HYDROCORTISONE ACETATE 25 MG SUPP PR PRN (18:12)
[2024-12-05] MEDS ORDERED: oxyCODONE/ACETAMINOPHEN 5mg/325mg TAB PO PRN (18:12)
[2024-12-05] MEDS ORDERED: ACETAMINOPHEN 325 MG TAB PO PRN (18:12)
[2024-12-05] MEDS ORDERED: bisacodyL 10 MG SUPP PR PRN (18:12)
[2024-12-05] MEDS: DIPHTHER/TETAN/PERTUS Vaccine (Tdap, Adol/Adult) 0.5mL IM ONE (19:05)
[2024-12-05] MEDS: BENZOCAINE 20% SPRY 85 APPLN/85 GM CAN EXT PRN (20:02)
[2024-12-05 20:46] VITALS: RESP 16
[2024-12-05] MEDS: DOCUSATE SODIUM 100 MG CAP PO SCH (20:50)
[2024-12-06] MEDS ORDERED: OXYTOCIN 10 UNITS/ML VIAL ONE (02:37)
[2024-12-06] MEDS: IBUPROFEN 600 MG TAB PO PRN (05:04)
[2024-12-06 06:28] LABS: Hematocrit (blood only) 26.5 % (37.0-47.0); Hemoglobin 8.8 g/dl (12.0-16.0)
--- NOTE | 2024-12-06 07:16 | Anesthesia Procedure Note ---
Date of Service December 06, 2024 Anesthesia Post Epidural Note Vital Signs Vital Signs: Temp Pulse Resp BP Pulse Ox O2 Del Method 36.8 C 83 16 104/67 99 Room Air 12/06/24 04:00 12/06/24 04:00 12/06/24 04:00 12/06/24 04:00 12/05/24 18:04 12/06/24 04:00 Pain Intensity Lower Medial Abdomen: Pain Intensity: 0 Notes Mental Status: alert / awake / arousable and participated in evaluation Nausea / Vomiting: adequately controlled Pain: adequately controlled Airway Patency, RR, SpO2: stable & adequate BP & HR: stable & adequate Hydration State: stable & adequate Neuraxial Anesthesia: was administered and sensory block is resolving Anesthetic Complications: no major complications apparent Epidural: Removed without complications and With tip intact
--- NOTE | 2024-12-06 07:52 | Obstetrical Progress Note ---
Date of Service December 06, 2024 Assessment & Plan (1) Elderly multigravida: PPD#1 doing well, desires DC home. Reviewed instructions, followup 6wpp. Subjective Ambulation: ambulating normally Voiding: no voiding problems Diet Tolerance:: regular diet Lochia:: Moderate Review of Systems All systems reviewed & are unremarkable except as noted in HPI & below Physical Exam Constitutional WD/WN, vitals as above no acute distress Respiratory normal respiratory effort Cardiovascular Rate/Rhythm: regular rate and regular rhythm Gastrointestinal (Abdomen) Inspection/Auscultation: abdomen normal to inspection; abdomen not distended Percussion/Palpation: abdomen soft Genitourinary OB Exam Abdomen: + fundal height Fundus: + firm; not tender Results & Data Vital Signs (Past 12 Hours) Vital Signs Temp Pulse Pulse Resp BP BP O2 Del Method 12/06/24 04:00 36.8 C 83 16 104/67 Room Air 12/05/24 23:56 36.9 C 16 109/70 Room Air 12/05/24 20:43 36.8 C 16 109/71 Room Air 12/05/24 20:00 18 12/05/24 20:00 86 123/63
[2024-12-06] MEDS: PANTOprazole 40 MG TAB PO SCH (08:16)
[2024-12-06] MEDS: PRENATAL VITAMIN 1 TAB PO SCH (08:17)
[2024-12-06 08:44] VITALS: O2SAT 98
[2024-12-06 16:08] VITALS: BP 112/76; PULSE 85; TEMP 98.2
[2024-12-06] MEDS ORDERED: bisacodyL 5 MG TABEC PO SCH (20:00)
== END 2024-12-06 19:30 | disposition home or self-care (01) | DRG 806 ==
LOC: OPB 14:35 → 4S1 14:47 → 4E2 20:20